=== PATIENT | male | born 1945 | race Caucasian/White ===

== ENCOUNTER 2016-08-24 19:17 | Emergency (ER) | payer MEDICARE, BC ==
[2016-08-24 20:00] VITALS: BP 145/82
[2016-08-24] MEDS ORDERED: Amoxicillin PO (*) 500 MG CAP PO ONE (20:43)
[2016-08-24] MEDS ORDERED: predniSONE TAB* 20 MG PO ONE (20:44)
--- NOTE | 2016-08-24 20:49 | UC ---
Throat Pain/Nasal Christopher HPI - HPI Summary HPI Summary: sinus pressure and drainage for past 2 weeks, much worse for past few days. Now with yellow drainage, pain behind eyes, terrible headache. No fever but has felt chilled. No vomiting. Has long history of sinus problems, takes two daily nasal inhalers. No cough - History of Current Complaint Chief Complaint: UCRespiratory Stated Complaint: SINUS PRESSURE Time Seen by Provider: 08/24/16 20:37 Hx Obtained From: Patient Onset/Duration: Gradual Onset, Lasting Weeks - 2 Severity: Moderate Cough: Nonproductive - mild Associated Signs & Symptoms: Positive: Hoarseness, Sinus Discomfort, Nasal Discharge. Negative: Dysphagia, Drooling, Wheezing, Fever, Vomiting, Rash - Epiglottits Risk Factors Epiglottis Risk Factors: Negative - Allergies/Home Medications Allergies/Adverse Reactions: Allergies Allergy/AdvReac Type Severity Reaction Status Date / Time No Known Allergies Allergy Verified 12/14/15 14:38 Home Medications: Home Medications Pseudoephedrine-Naproxen Sodiu [Aleve-D Sinus & Cold 120-220 mg] 2 tab PO PRN [History] PMH/Surg Hx/FS Hx/Imm Hx Previously Healthy: Yes Endocrine History Of: Denies: Diabetes Cardiovascular History Of: Denies: Hypertension - Surgical History Surgical History: Yes Surgery Procedure, Year, and Place: Nasal surgery - Family History Known Family History: Positive: Hypertension - Social History Occupation: Retired Lives: With Family Alcohol Use: Occasionally Substance Use Type: None Smoking Status (MU): Former Smoker Type: Cigarettes Length of Time of Smoking/Using Tobacco: 30 yrs Have You Smoked in the Last Year: No Review of Systems Constitutional: Negative Skin: Negative Eyes: Negative ENT: Nasal Discharge, Other - sinus pressure Respiratory: Cough - mild, dry Cardiovascular: Negative Gastrointestinal: Negative Genitourinary: Negative Motor: Negative Neurovascular: Negative Musculoskeletal: Negative Neurological: Headache Psychological: Negative All Other Systems Reviewed And Are Negative: Yes Physical Exam Triage Information Reviewed: Yes Appearance: Well-Appearing, No Pain Distress, Well-Nourished Vital Signs: Initial Vital Signs Temp 98.8 F 08/24/16 19:54 Pulse 69 08/24/16 19:54 Resp 16 08/24/16 19:54 BP 145/82 08/24/16 19:54 Pulse Ox 99 08/24/16 19:54 Vital Signs Reviewed: Yes Eye Exam: Normal ENT: Positive: Hearing grossly normal, Nasal congestion, TMs normal, Muffled/ hoarse voice - hoarse, Other: - tenderness to percussion over frontal sinuses. Negative: Tonsillar swelling, Tonsillar exudate, Trismus Neck exam: Normal Respiratory Exam: Normal Respiratory: Positive: Lungs clear, Normal breath sounds, No respiratory distress, No accessory muscle use Cardiovascular Exam: Normal Musculoskeletal Exam: Normal Neurological Exam: Normal Neurological: Positive: Alert, Muscle Tone Normal Psychological Exam: Normal Skin Exam: Normal Throat Pain/Nasal Course/Dx - Differential Dx/Diagnosis Differential Diagnosis/HQI/PQRI: Pharyngitis, Sinusitis, URI Provider Diagnoses: sinusitis Discharge - Discharge Plan Condition: Stable Disposition: HOME Prescriptions: Amoxicillin (*) 875 mg PO BID #20 tab predniSONE TAB* [Deltasone TAB*] 20 mg PO DAILY #11 tab Patient Education Materials: Sinusitis (ED) Referrals: Pablito Liz DO [Primary Care Provider] -
== END 2016-08-24 21:02 | disposition home or self-care (01) ==
LOC: UCCORT 19:17
DX: J32.9 Chronic sinusitis, unspecified (principal); Z87.891 Personal history of nicotine dependence
CPT/HCPCS: 99212; A9270-GY; G0463; J7512